=== PATIENT | female | born 1950 | race Two or more races ===

== ENCOUNTER 2025-01-07 09:19 | Day surgery (SDC) | payer MEDICARE, OTHER ==
[2025-01-07] MEDS ORDERED: FENTANYL PF 100MCG/2ML AMPUL ONE (10:29)
[2025-01-07] MEDS ORDERED: BUPIVACAINE 0.5 % PF 150 MG/30 ML VIAL ONE (10:33)
[2025-01-07] MEDS ORDERED: LIDOCAINE 1%-EPI 1:100,000 20 ML VIAL ONE (10:33)
[2025-01-07] MEDS ORDERED: SEVOFLURANE 250 ML BOTTLE IH ONE (10:37)
[2025-01-07] MEDS ORDERED: ANESTHESIA TRAY IN PYXIS 1 EA TRAY MC ONE (15:07)
[2025-01-09 08:22] LABS: HIV-1/2 ANTIBODY NON REACTIVE (NONREACTIVE)
== END 2025-01-07 15:00 | disposition home or self-care (01) ==
LOC: DS 09:19
PROVIDERS: ATTEND Surgery
DX: C50.911 Malignant neoplasm of unspecified site of right female breast (principal); Z90.11 Acquired absence of right breast and nipple; Z98.890 Other specified postprocedural states; Z79.899 Other long term (current) drug therapy
CPT/HCPCS: 38745; 86704; 86803; 87806; A6223; J0690; J1100; J1885; J2405; J2704; J2765; J3010; J3490; J7030; 36415